=== PATIENT | female | born 1980 | race Caucasian/White ===

== ENCOUNTER → 2019-10-16 11:43 | Outpatient (CLI) | payer OTHER | END | disposition home or self-care (01) | LOC: LAB 11:43 | PROVIDERS: ATTEND Internal Medicine Hematology & Oncology | DX: D50.8 Other iron deficiency anemias (principal); D55.0 Anemia due to glucose-6-phosphate dehydrogenase [G6PD] deficiency; D51.1 Vitamin B12 deficiency anemia due to selective vitamin B12 malabsorption with proteinuria; D51.0 Vitamin B12 deficiency anemia due to intrinsic factor deficiency; E06.3 Autoimmune thyroiditis; K91.2 Postsurgical malabsorption, not elsewhere classified; E05.80 Other thyrotoxicosis without thyrotoxic crisis or storm ==